=== PATIENT | male | born 1985 | race African-American/Black ===

== ENCOUNTER 2022-01-30 20:17 | Emergency (ER) | payer OTHER ==
[2022-01-30 20:30] VITALS: BP 142/59; PULSE 85; TEMP 98.2; BMI 35.9
[2022-01-30] MEDS ORDERED: SODIUM CHLORIDE 1,000 ML IV STA (22:51)
[2022-01-30 23:15] LABS: BASO % 0.3 % (0-2.0); EOS % 2.1 % (0-4.5); HEMATOCRIT 38.5 % (35.4-49); HEMOGLOBIN 12.7 GM/dL (11.7-16.9); LYMPH % 14.9 % (8-40); MCH 27.8 pg (25.7-33.7); MEAN CELL VOLUME 84.3 fl (80-96); MEAN PLT VOLUME 8.1 fl (7.5-11.1); MONO % 8.9 % (3.8-10.2); NEUT % 73.8 % (42.8-82.8); PLATELET COUNT 181 10^3/uL (134-434); RBC 4.57 M/mm3 (4.00-5.60); RDW 13.6 % (11.9-15.9); WHITE BLOOD COUNT 6.4 K/mm3 (4.0-10.0)
[2022-01-30 23:33] LABS: ALBUMIN 3.8 g/dl (3.4-5.0); CALCIUM 8.6 mg/dL (8.5-10.1)
[2022-01-30 23:34] LABS: BLOOD UREA NITROGEN 18.1 mg/dL (7-18)
[2022-01-30 23:38] LABS: BILIRUBIN,TOTAL 0.4 mg/dL (0.2-1); TOT PROT 7.2 g/dl (6.4-8.2)
== END 2022-01-31 02:13 | disposition left against medical advice (07) ==
LOC: JER 20:17
PROC: 3E0337Z Introduction of Electrolytic and Water Balance Substance into Peripheral Vein, Percutaneous Approach (ICD-10-PCS; principal; 2022-01-30)
DX: F19.10 Other psychoactive substance abuse, uncomplicated (principal); R06.02 Shortness of breath
CPT/HCPCS: 36415; 71045-TC-FY; 80053; 84484; 85025; 93005; 93010; 99284-25